=== PATIENT | male | born 1970 | race African-American/Black ===

== ENCOUNTER → 2022-02-25 | Outpatient (CLI) | payer OTHER ==
[~2022-02-25] MED LIST: REGADENOSON 0.4 MG/5 ML SYRG IV ONE
[2022-02-25 09:19] VITALS: BP 145/87
== END | disposition home or self-care (01) ==
LOC: XYW 08:00
PROVIDERS: ATTEND Internal Medicine
DX: I50.9 Heart failure, unspecified (principal); I51.7 Cardiomegaly
CPT/HCPCS: 78452; 93017; A9500; J2785